=== PATIENT | female | born 1945 | race Caucasian/White ===

== ENCOUNTER 2020-07-16 17:01 | Outpatient (CLI) | payer MEDICARE, SELFPAY ==
--- NOTE | ~2020-07-16 | XR_ITS ---
EXAMINATION: XR knee RT 3V DATE: 07/16/2020 18:19 INDICATION: Right knee pain and swelling. TECHNIQUE: 4 views of right knee were obtained. COMPARISON: Right knee radiographs 11/26/2008 FINDINGS: Bone alignment is normal. No fracture. There is mild tricompartmental osteoarthritis. There is chondrocalcinosis of the menisci. No knee joint effusion. IMPRESSION: 1. Mild right knee osteoarthritis. Reviewed, dictated and finalized at location A.
== END 2020-07-16 17:02 | disposition home or self-care (01) ==
LOC: CHSIMG 17:06
PROVIDERS: PCP Internal Medicine; Visit Provider Internal Medicine
DX: M25.461 Effusion, right knee (principal); M17.11 Unilateral primary osteoarthritis, right knee
CPT/HCPCS: 73562

== ENCOUNTER 2021-04-02 03:59 | Emergency (ER) | payer MEDICARE, SELFPAY ==
[2021-04-02 04:05] VITALS: BP 183/91; PULSE 92; RESP 16; TEMP 36.6; O2SAT 96
[2021-04-02] MEDS: KETOROLAC 30 MG/ML VIAL (*BKC) IM (04:18)
--- NOTE | 2021-04-02 04:52 | ED.BACK ---
HPI - Back Pain/Injury General Chief Complaint: Back Pain/Injury Stated Complaint: Back pain Source: patient and RN notes reviewed Mode of arrival: ambulatory Limitations: no limitations History of Present Illness HPI Narrative: patient was picking up her grandson when she felt twinge in her left lower back. She says it continues to hurt and spasm. Making it difficult for her to sleep. MD elicited complaint: back pain Onset (ago): day(s) (2) Timing: constant Severity: severe Similar Symptoms Previously: No Quality: dull, aching and spasming Location: lumbar spine Radiation: none Exacerbating factors: movement Relieving factors: none Context: while lifting Associated symptoms: denies other symptoms Related Data Home Medications Medication Instructions Recorded Confirmed Adult Low Dose Aspirin 81 mg PO DAILY 04/02/21 04/02/21 pravastatin 10 mg PO DAILY 04/02/21 04/02/21 triamterene-hydrochlorothiazid 37.5 tablet PO DAILY 04/02/21 04/02/21 verapamil 180 mg PO DIRECTED 04/02/21 04/02/21 Allergies Allergy/AdvReac Type Severity Reaction Status Date / Time No Known Allergies Allergy Verified 04/02/21 04:12 Review of Systems Review of Systems: All systems reviewed & are unremarkable except as noted in HPI and below PMFSH Past Medical History Medical History (Updated 04/02/21 @ 05:04 by Tommie Smith MD) Breast cancer Hyperlipidemia Hypertension Surgical History Surgical History (Updated 04/02/21 @ 05:03 by Tommie Smith MD) S/P breast lumpectomy Exam Const: General: healthy appearing, no acute distress and alert Nutritional Appearance: well nourished Orientation/consciousness: patient oriented x3 HENMT: Head: normal to inspection Ears: external ears normal Face and sinus: normal facial exam Mouth: Yes moist mucous membranes Eyes: Conjunctivae: conjunctivae normal Pupils: Equal, round and reactive pupils present EOM: EOMs intact bilaterally Neck: Neck: normal visual inspection Resp: Effort & Inspection: normal respiratory effort Auscultation: clear to auscultation bilaterally Cardio: Rate: regular rate Rhythm: regular rhythm GI: GI Palp: Yes Soft to palpation and No Tenderness to palpation present (GI) Auscultation: normal bowel sounds Back/Spine/Pelvis: Cervical Spine: cervical ROM normal Thoracic/Lumbar Spine: straight leg raise negative bilaterally, pain with thoraco-lumbar ROM, thoraco-lumbar ROM limited ( Backward extension) with lateral flexion to the right and with lateral flexion to the left, thoraco-lumbar spasm on the left in the lower lumbar and No lumbar spinal tenderness Skin: General skin exam: normal color Rashes: no rashes Neuro: General: patient oriented x3, moves all extremities, no focal motor deficits and CN's II-XI intact bilaterally Speech: normal speech Motor exam (neuro): 5/5 motor strength present throughout Deep tendon reflexes (DTR's): Right patellar reflex intensity grade: 2+, Left patellar reflex intensity grade: 2+, Right ankle reflex intensity grade: 2+ and Left ankle reflex intensity grade: 2+ Extrem: General: normal to inspection and no clubbing, cyanosis or edema Psych: Appearance: grossly normal and well kempt Mental Status: mental status grossly normal Affect: normal affect Attitude: cooperative Thought content: Yes Normal thought content present Course Course Emergency Course: patient had improvement in her pain and range of motion following Toradol. Vital Signs Vital signs: Vital Signs Temperature 36.6 C 04/02/21 04:05 Pulse Rate 92 04/02/21 04:05 Respiratory Rate 16 04/02/21 04:05 Blood Pressure 183/91 H 04/02/21 04:05 Pulse Oximetry 96 04/02/21 04:05 Temperature 36.6 C 04/02/21 04:05 Pulse Rate 92 04/02/21 04:05 Respiratory Rate 16 04/02/21 04:05 Blood Pressure 183/91 H 04/02/21 04:05 Pulse Oximetry 96 04/02/21 04:05 Discharge Plan Discharge Clinical Impression: Strain of lumbar reg
[2021-04-02 04:53] VITALS: BP 157/81; PULSE 79; RESP 16; O2SAT 94
== END 2021-04-02 05:15 | disposition home or self-care (01) ==
PROVIDERS: Emergency Provider Emergency Medicine; PCP Internal Medicine
DX: S39.012A Strain of muscle, fascia and tendon of lower back, initial encounter (principal); X50.9XXA Other and unspecified overexertion or strenuous movements or postures, initial encounter; E78.5 Hyperlipidemia, unspecified; I10 Essential (primary) hypertension; Z85.3 Personal history of malignant neoplasm of breast
CPT/HCPCS: 96372; 99283; J1885

== ENCOUNTER 2022-04-06 15:43 | Outpatient (CLI) | payer MEDICARE, SELFPAY ==
--- NOTE | ~2022-04-06 | XR_ITS ---
EXAM: XR lumbar spine 2-3V DATE: 04/06/2022 16:12 HISTORY: RT SIDED LUMBAR PAIN RADIATES DOWN LEG X FEW WEEKS NO INJURY . COMPARISON: 08/06/2015. FINDINGS: 5 nonrib-bearing lumbar-type vertebral bodies. Pedicles intact. Normal vertebral body alig nment. Mild lumbar scoliosis. Vertebral body heights preserved. Multilevel moderate and severe degree s of disc space narrowing and marginal osteophytosis with vacuum phenomenon at L1-2, L3-4, and L5-S1. Multilevel facet hypertrophy and sclerosis. Minimal aortic calcification without evident aneurysm No fracture or dislocation. IMPRESSION: Multilevel moderate-severe degenerative disc disease and facet arthropathy. Reviewed, dictated and finalized at location K. ER TAILER IMPRESSION: Multilevel moderate-severe degenerative disc disease and facet arth ropathy.
--- NOTE | ~2022-04-06 | XR_ITS ---
EXAM: XR hip RT min 2V DATE: 04/06/2022 16:13 HISTORY: LATERAL/POSTERIOR RT HIP PAIN X FEW WEEKS NO INJURY . COMPARISON: None available. FINDINGS: Decreased mineralization. No fracture or dislocation. No lytic or blastic lesion. Bilatera l superior hip joint space narrowing and chondrocalcinosis. Pelvic and hip enthesopathy. No erosion o r periosteal change. Pelvic phleboliths. Degenerative change in the lumbar spine. IMPRESSION: Mild arthritic changes of the hips. Reviewed, dictated and finalized at location K. 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
== END 2022-04-06 15:44 | disposition home or self-care (01) ==
LOC: CHSIMG 15:46
PROVIDERS: PCP Internal Medicine; Visit Provider Internal Medicine
DX: M25.551 Pain in right hip (principal); M51.36 Other intervertebral disc degeneration, lumbar region; M16.0 Bilateral primary osteoarthritis of hip
CPT/HCPCS: 72100; 73502

== ENCOUNTER 2022-07-20 10:41 | Outpatient (CLI) | payer MEDICARE, OTHER, SELFPAY ==
--- NOTE | ~2022-07-20 | DEXA_ITS ---
Bone Density Report Name: KRISS NOLAN Age: 77 Sex: Female Ethnicity: White Date of : 1945 Indication: postmenopausal; screening for osteoporosis; height loss; Referring Provider: Vance Grey Study: Bone densitometry was performed. Exam Date: July 20, 2022 Accession number: [id number] Bone Density: Region BMD T-score Z-score Classification AP Spine(L2, L3, L4) 1.157 0.7 3.3 Normal Femoral Neck (Left) 0.760 -0.8 1.4 Normal Total Hip (Left) 0.958 0.1 2.0 Normal Femoral Neck (Right) 0.739 -1.0 1.2 Normal Total Hip (Right) 0.945 0.0 1.9 Normal Femoral Neck Mean 0.750 -0.9 1.3 Normal Total Hip Mean 0.952 0.1 2.0 Normal World Health Organization criteria for BMD impression classify patients as: Normal (T-score at or above -1.0), Osteopenia (T-score between -1.0 and -2.5), or Osteoporosis (T-score at or below -2.5). 10-year Fracture Risk: FRAX not reported because: All T-scores for Spine Total, Hip Total, Femoral Neck at or above -1.0 Clinical Information Provided by Patient: Has used the following medications: Vitamin D, Calcium Patient maximum height was 63 Menopause Age: 50 No regular weight bearing exercise Onset of menses at age 13 Number of children 1 Impression: The patient has normal bone mass. Discussion: BONE DENSITY IS ABOVE THE MINIMUM DESIRABLE LEVEL AT ALL SKELETAL SITES TESTED. This patient?s bone mineral density is above the minimum desirable level (T-score -1.0 or better) at all sites measured. The patient should follow a healthful lifestyle (good nutrition with adequate calcium and vitamin D, and appropriate weight-bearing exercise). Follow-Up: Consider repeating this study in 5 years or sooner if there is some new clinical indication. Reported by: Dr. Rogelio De Leon on 07/20/2022 11:06:00 AM. Reviewed, dictated and finalized at location ATim GEORGE
== END 2022-07-20 10:42 | disposition home or self-care (01) ==
LOC: CHSIMG 10:45
PROVIDERS: PCP Internal Medicine; Visit Provider Internal Medicine
DX: Z78.0 Asymptomatic menopausal state (principal)
CPT/HCPCS: 77080

== ENCOUNTER 2024-11-22 14:16 | Outpatient (CLI) | payer MEDICARE, OTHER, SELFPAY ==
--- NOTE | ~2024-11-22 | DEXA_ITS ---
Bone Density Report Name: KRISS NOLAN Age: 79 Sex: Female Ethnicity: White Date of : 1945 Indication: postmenopausal; screening for osteoporosis; height loss; Referring Provider: Vance Grey Study: Bone densitometry was performed. Exam Date: November 22, 2024 Accession number: [id number] Bone Density: Region BMD T-score Z-score Classification AP Spine(L2, L3, L4) 1.162 0.8 3.5 Normal Femoral Neck (Left) 0.785 -0.6 1.7 Normal Total Hip (Left) 1.058 1.0 3.0 Normal Femoral Neck (Right) 0.772 -0.7 1.6 Normal Total Hip (Right) 1.055 0.9 3.0 Normal Femoral Neck Mean 0.779 -0.6 1.7 Normal Total Hip Mean 1.057 0.9 3.0 Normal World Health Organization criteria for BMD impression classify patients as: Normal (T-score at or above -1.0), Osteopenia (T-score between -1.0 and -2.5), or Osteoporosis (T-score at or below -2.5). 10-year Fracture Risk: FRAX not reported because: All T-scores for Spine Total, Hip Total, Femoral Neck at or above -1.0 Previous Exams: Region Exam Age BMD T-score BMD Change BMD Change Date g/cm2 vs Baseline vs Previous AP Spine (L2-L4) 11/22/2024 79 1.162 0.8 0.005 (0.4%) 0.005 (0.4%) 07/20/2022 77 1.157 0.7 Total Hip(Left) 11/22/2024 79 1.058 1.0 0.100 (10.4%)* 0.100 (10.4%)* 07/20/2022 77 0.958 0.1 Total Hip(Right) 11/22/2024 79 1.055 0.9 0.110 (11.7%)* 0.110 (11.7%)* 07/20/2022 77 0.945 0.0 *Denotes significance at 95% confidence level, LSC for AP Spine = 0.022 g/cm2, LSC for Total Hip = 0.027 g/cm2 Clinical Information Provided by Patient: Has used the following medications: Vitamin D Patient maximum height was 63 Menopause Age: 50 No regular weight bearing exercise Drinks caffeinated beverages Onset of menses at age 12 Number of children 1 Impression: The patient has normal bone mass. No significant bone loss was observed. Discussion: BONE DENSITY IS ABOVE THE MINIMUM DESIRABLE LEVEL AT ALL SKELETAL SITES TESTED. This patient?s bone mineral density is above the minimum desirable level (T-score -1.0 or better) at all sites measured. The patient should follow a healthful lifestyle (good nutrition with adequate calcium and vitamin D, and appropriate weight-bearing exercise). Follow-Up: Consider repeating this study in 5 years or sooner if there is some new clinical indication. Reported by: STANLEY on 11/22/2024 3:07:00 PM. Reviewed, dictated and finalized at location A.
== END 2024-11-22 14:17 | disposition home or self-care (01) ==
PROVIDERS: PCP Internal Medicine; Visit Provider Internal Medicine
DX: Z78.0 Asymptomatic menopausal state (principal)
CPT/HCPCS: 77080

== ENCOUNTER 2024-11-30 16:26 | Outpatient (CLI) | payer MEDICARE, OTHER, SELFPAY ==
--- OUTSIDE RECORDS SUMMARY | 2024-11-30 16:31 | XMS_ITS | Clinical Summary ---
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 Name Role Phone Vance Grey MD Primary Care Provider [phone] Allergies No known active allergies Medications triamterene-hydroC HLOROthiazide (MAXZIDE-25) 37.5-25 MG tablet 03/14/2017 A ctive verapamil ER (VERELAN PM) 180 MG 24 hr capsule 03/14/2017 Ac tive pravastatin (PRAVACHOL) 10 MG tablet 03/14/2017 Active Active Problems Problem Noted Date Diagnosed Date Screening for colon cancer 06/25/2022 Overview (06/25/2022): Added automatically from request for surgery [id number] Hx of colonic polyp 06/25/2022 Overview (06/25/2022): Added automatically from request for surgery [id number] Family History Medical History Relation Comments Breast Cancer Neg Hx Social History Tobacco Use Types Packs/Day Years Used Date Smoking Tobacco: Never Smokeless Tobacco: Never Alcohol Use Standard Drinks/Week Comments Never 0 (1 standard drink = 0.6 oz pur e alcohol) Comments No Sex and Gender Information Value Date Recorded Sex Assigned at Female 03/27/2024 8:47 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 Legal Sex Female 4:44 PM CDT Gender Identity Not on file Sexual Orientation Not on file Last Filed Vital Signs Vital Sign Reading Time Taken Comments Blood Pressure 141/66 10/08/2022 2:00 PM CDT Pulse 69 10/08/2022 2:00 PM CDT Temperature 36.9 C (98.4 F) 10/08/2022 12:02 PM CDT Respiratory Rate 20 10/08/2022 2:00 PM CDT Oxygen Saturation 98% 10/08/2022 2:00 PM CDT Inhaled Oxygen Concentration - - Weight 68 kg (150 lb) 10/01/2022 10:04 AM CDT Height 160 cm (5' 3) 10/01/2022 10:04 AM CDT Body Mass Index 26.57 10/01/2022 10:04 AM CDT Plan of Treatment Health Maintenance Due Date Last Done Comments Hepatitis C 1963 DTaP, Tdap and Td Vaccines ( 1 - Tdap) 1964 Annual Medicare Wellness Visit 2010 Dexa Scan (General) 2010 Zoster Vaccines (2 of 3) 11/16/2011 09/21/2011 Pneumococcal Vaccine: 50+ Ye ars (2 of 2 - PPSV23) 01/04/2016 01/03/2015 RSV Immunization or 60+ Years (1 - 1-dose 75+ series) 2020 COVID-19 Vaccine ( - 2023-2 5 season) 2024 Colorectal Cancer Screening Colonoscopy (10 Years) Discontinued 10/08/2022 Meningococcal B Vaccine Aged Out No l onger eligible based on patient's age to complete this topic Meningococcal Vaccine Aged Out No mode charbel eligible based on patient's age to complete this topic RSV Immunizations Under 20 Months Aged Out No longer eligible based on patient's age to complete this topic Insurance MEDICARE [facility] Care Teams Sheep And Wheat Farmer Relationship Specialty Start Date End Date Vance Grey MD [address] [place] [address] PCP - General INTERNAL MEDICINE 11/21/18
== END 2024-11-30 16:27 | disposition home or self-care (01) ==
PROVIDERS: PCP Internal Medicine; Visit Provider Internal Medicine
DX: R21 Rash and other nonspecific skin eruption (principal)
CPT/HCPCS: 87529; 87798

== ENCOUNTER 2025-03-08 12:26 | Emergency (ER) | payer MEDICARE, OTHER, SELFPAY ==
--- NOTE | ~2025-03-08 | XR_ITS ---
Examination: XR chest 2V Clinical History: chest pain x5 days Comparison: None Technique: PA and Lateral Findings: Cardiomediastinal silhouette normal size and configuration. Mild interstitial markings right midlung. No acute bony abnormality. Osteopenia. IMPRESSION: 1. Minimal pneumonitis right lung not excluded. Reviewed, dictated and finalized at location R. ERY NURSE
[2025-03-08 12:26] VITALS: BP 147/76; PULSE 79; RESP 16; TEMP 36.3; O2SAT 94
--- NOTE | 2025-03-08 12:27 | ECG_ITS ---
Test Date: 2025-03-08 12:35:48 Measurements Intervals Mobile Rate: 75 P: 15 KS: 191 QRS: -36 QRSD: 75 T: 65 QT: 373 QTc: 417 Interpretive Statements SINUS RHYTHM LEFT AXIS DEVIATION CONSIDER ANTERIOR INFARCT, AGE INDETERMINATE BORDERLINE ST-T WAVE ABNORMALITY- ANT/HIGH LAT LEADS BASELINE ARTIFACT- I, III, AVR, AVL, AVF ABNORMAL ECG No previous ECG available for comparison Electronically Signed On 03-08-2025 20:08:01 REMEDIATION TECHNICIAN by Kemar Blakely D.O.
--- NOTE | 2025-03-08 12:38 | ED_ITS ---
HPI - Chest Pain General Chief Complaint: Chest Pain Stated Complaint: chest pressure Source: patient and family Mode of arrival: ambulatory Limitations: no limitations History of Present Illness HPI narrative: Patient is a 79-year-old female with left-sided chest pain for the past 2 days. Patient did have some shingles in the similar area about 3-4 weeks ago. The left sided chest pain was a little bit more epigastric in nature or lower chest area. MD complaint: chest discomfort Pertinent past history: other (Shingles 3-4 weeks ago left chest) Onset (ago): day(s) (2) Timing of current episode: episodic and now resolved Prior episodes: Yes Onset: during rest Pain location: substernal and left chest (Lower chest) Pain radiation: none Severity: mild Pain scale (0-10): 2 Quality: tightness and sharp Relieving factors: nothing Exacerbating factors: nothing Context: other (Patient has left-sided chest pain that has been going on and off since last night and resolved at this time) Associated symptoms: other (None) Treatment prior to arrival: none Risk Factors Coronary artery disease risk factors: hyperlipidemia and hypertension Thoracic aortic dissection risk factors: none Related Data On Oral Contraceptives: No Home Medications ?Medication ?Instructions ?Recorded ?Confirmed ?Last Taken ?Type Adult Low Dose Aspirin 81 mg PO DAILY 04/02/2101/12 Unknown History pravastatin 10 mg tablet 10 mg PO DAILY 04/02/2101/12 Unknown History triamterene 37.5 37.5 tablet PO DAILY 2 01/29/25 Unknown History mg-hydrochlorothiazide 25 mg tablet verapamil 180 mg tablet,extended 180 mg PO DIRECTED 04/02/21 01/29/25 Unknown History release Allergies Allergy/AdvReac Type Severity Reaction Status Date / Time No Known Allergies Allergy Verified 03/08/25 13:04 Review of Systems 2 Review of Systems: All systems reviewed & are unremarkable except as noted in HPI and below Constitutional: Constitutional: Reports no additional constitutional complaints Eyes: Eyes: Reports no additional eye complaints ENT: Reports system reviewed and no additional complaints, except as documented Cardiovascular: Cardiovascular: Reports no additional cardiovascular complaints Respiratory: Respiratory: Reports no additional respiratory complaints Gastrointestinal: Gastrointestinal: Reports no additional gastrointestinal complaints Genitourinary: Genitourinary: Reports no additional female genitourinary complaints Musculoskeletal: Musculoskeletal: Reports no additional musculoskeletal complaints Integumentary/Breasts: Skin/Breast: Reports system reviewed and no additional complaints, except as docu Neurologic: Reports system reviewed and no additional complaints, except as documented Psychiatric: Psychiatric: Reports no additional psychiatric complaints Endocrine: Endocrine: Reports no additional endocrine complaints Hematologic/Lymphatic: Hematologic/Lymphatic: Reports no additional hematologic/lymphatic complaints Allergic/Immunologic: Allergic/Immunologic: Reports no additional allergic/immunologic complaints PMFSH Past Medical History Medical History Screening mammogram, encounter for Breast cancer hx of breast ca; 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; ER/LA positive Hyperlipidemia Hypertension Surgical History Surgical History Delivery by section (~1981) History of orthopedic surgery (02/12/04) foot surgery - nerve tumor H/O right breast biopsy (07/31/03) (R) breast needle loclization bx, (R) breast needle loclization bx , separate lesion S/P breast lumpectomy (08/20/03) (R) breast lumpectomy with axillary dissection Family History Family History Father Heart disease Mother Hypertension Social History Social History Smoking status: Never smoker Second hand tobacco smoke exposure: No Alcohol intake: never Substance use: never Substance use type: does not use Current Housing: Decline to Answer Concerned About Future Housing: Decline to Answer Difficulty Paying Gas/Electric Bills: Decline to Answer Difficulty Paying for Meds: Decline to Answer Currently Unemployed: Decline to Answer Education: Decline to Answer Difficulty w/ Childcare or Family Care: Decline to Answer Living arrangements: with family Additional living arrangements comments: Occupation/Education: retired Gender identity (if verbalized by the patient): Female Sexual Orientation (if Verbalized by the Patient): Straight or Heterosexual Exam 2 Const: General: healthy appearing Nutritional Appearance: well nourished Orientation/consciousness: patient oriented x3 Limitations: no limitations HENMT: Head: normal to inspection Ears: external ears normal F sky/Nose/Sinus: Normal external nose present Eyes: Conjunctivae: conjunctivae normal Pupils: Equal, round and reactive pupils present EOM: EOMs intact bilaterally Neck: Neck: normal visual inspection Chest: Chest palpation & inspection: normal inspection of the chest Resp: Effort & Inspection: normal respiratory effort and not labored A uscultation: clear to auscultation bilaterally and no crackles Cardio: Rate: regular rate Rhythm: regular rhythm Heart sounds: no murmurs GI: Inspection: non-distended GI Palp: Yes Soft to palpation and No Tenderness to palpation present (GI) Auscultation: normal bowel sounds : General: Yes bladder normal to palpation Back/Spine/Pelvis: Back: no CVA tenderness Skin: General skin exam: normal color Rashes: rash noted (Left chest has a redness and erythema on the mid to upper chest) Wounds: no wounds Other: The rash is the prior site of shingles; no findings of vesicles or blisters present Neuro: General: patient oriented x3, moves all extremities and no meningeal signs Extrem: General: normal to inspection Psych: Mental Status: mental status grossly normal Affect: normal affect Attitude: cooperative Course Vital Signs Vital signs: Vital Signs Temperature 36.3 C L 03/08/25 12:26 Pulse Rate 79 03/08/25 12:26 Respiratory Rate 16 03/08/25 12:26 Blood Pressure 147/76 H 03/08/25 12:26 Pulse Oximetry 94 03/08/25 12:26 Oxygen Delivery Room Air 03/08/25 12:26 Temperature 36.6 C 03/08/25 15:00 Pulse Rate 72 03/08/25 15:00 Respiratory Rate 16 03/08/25 15:00 Blood Pressure 142/75 H 03/08/25 15:00 Pulse Oximetry 96 03/08/25 15:00 Oxygen Delivery Room Air 03/08/25 13:30 [facility] Narrative Medical decision making narrative: Patient is a 79-year-old female with left-sided chest pain for the past 2 days. Chest pain is atypical in nature. Labs. Chest x-ray. UA. Workup was essentially negative except UTI. We will treat UTI and shingles possibility. Chest x-ray shows pneumonitis and will treat accordingly as well. Differential Diagnosis Differential Diagnosis: Atypical chest pain, chest pain/angina Lab Data [facility] Lab Attestation statement: I personally reviewed the patient's lab results. 03/08/25 13:07 03/08/25 13:07 Labs: Lab Results 03/08/25 03/08/25 Range/Units 13:07 14:17 WBC 8.4 (4.8-10.8) K/mm3 RBC 5.14 (4.20-5.40) M/mm3 Hgb 14.8 H (11.7-13.8) g/dL Hct 45.1 H (35.0-42.0) % MCV 87.7 (78.0-102.0) fL MCH 28.8 (27.0-31.0) pg MCHC 32.8 (32-36) g/dL RDW 13.2 (11.6-14.4) % Plt Count 272 (150-420) K/mm3 MPV 10.6 (9.2-11.8) fl Immature Gran % (Auto) 0.4 H (0.0-0.0) % Neut % (Auto) 57.0 (50.0-70.0) % Lymph % (Auto) 25.5 (18.0-42.0) % [place] % (Auto) 11.4 H (2.0-11.0) % Eos % (Auto) 5.1 (1.0-6.0) % Baso % (Auto) 0.6 (0.0-1.0) % Lymph # (Auto) 2.15 (1.10-4.50) K/mm3 [place] # (Auto) 0.96 H (0.10-0.90) K/mm3 Eos # (Auto) 0.43 (0.02-0.50) K/mm3 Baso # (Auto) 0.05 (0.00-0.10) K/mm3 Abs Immat Gran (auto) 0.03 H (0.00-0.00) K/mm3 Absolute Neuts (auto) 4.80 (1.70-7.20) K/mm3 Absolute Nucleated RBC 0.00 (0.00-0.00) K/mm3 Nucleated RBC % 0.0 (0-0.0) % PT 10.3 (9.50-12.1) Seconds INR 0.9 APTT 26.3 (23.9-30.70) Sec Sodium 142 (137-145) mmol/L Potassium 3.7 (3.4-5.0) mmol/L Chloride 103 (98-107) mmol/L Carbon Dioxide 28 (22-30) mmol/L Anion Gap 11 (4-12) mmol/L BUN 30 H (7-17) mg/dL Creatinine 1.17 H (0.7-1.0) mg/dL Estim Creat Clear Calc 32 ml/min Estimated GFR 45 L (59 - ) Glucose 101 (65-110) mg/dL Calculated Osmolality 300 H (285-295) mOsm/kg Calcium 10.1 (8.4-10.2) mg/dL Total Bilirubin 0.6 (0.2-1.3) mg/dL AST 40 H (14-36) U/L ALT 38 H (6-35) U/L Alkaline Phosphatase 86 (38-126) U/L Troponin I < 0.012 (0.000-0.034) ng/mL NT-Pro-B Natriuret Pep 68 (19.9-100) pg/mL Total Protein 7.6 (6.3-8.2) g/dL Albumin 4.5 (3.5-5.1) g/dL Lipase 144 (23-300) U/L Urine Color Light yellow (Yellow) Urine Appearance Cloudy A (Clear) Urine pH 8.0 (5.0-8.0) Ur Specific [place] 1.015 (1.010-1.020) Urine Protein Negative (Negative) Urine Glucose (UA) Negative (Negative) Urine Ketones Negative (Negative) Ur Blood (Man) Negative (Negative) Urine Nitrate Positive H (Negative) Urine Bilirubin Negative (Negative) Urine Urobilinogen 0.2 (0.2-1.0) mg/dL Leukocyte Esterase Rfl 3+ H (Negative) LYNDON/UL Urine RBC None seen (0-2) /hpf Urine WBC 10-15 H (0-3) /hpf Ur Squamous Epith Cells Rare (Few) /hpf Amorphous Sediment Moderate H (None) Urine Bacteria 2+ H (None) /hpf Imaging Data Attestation: I personally reviewed and interpreted this imaging study as follows: Radiologist's impression: ITS Impressions Chest X-Ray 03/08/25 13:08 IMPRESSION: 1. Minimal pneumonitis right lung not excluded. ECG Data EKG #1: Attestation: I personally reviewed and interpreted this ECG as follows: ECG completion date: 03/09/25 ECG completion time: 03:13 normal rate, sinus rhythm, no ectopy, non-specific ST changes, normal QRS, normal QT and left axis Discharge Plan Discharge Clinical Impression: Atypical chest pain, Acute UTI, Pneumonitis Shingles Qualifiers: Herpes zoster complications: unspecified herpes zoster complication Qualified Code(s): B02.8 - Zoster with other complications Patient Disposition: Home Condition: Stable Instructions: Antibiotic Form, Chest Pain (DC), Urinary Tract Infection in Older Adults (ED) Patient Language: Romanian Prescriptions: New amoxicillin-pot clavulanate 875-125 mg tablet 1 tablet PO BID 7 Days Qty: 14 0RF prednisone 20 mg tablet 40 mg PO DAILY 3 Days Qty: 6 0RF valacyclovir [Valtrex] 1 gram tablet 1,000 mg PO TID 10 Days Qty: 30 0RF No Action verapamil 180 mg tablet extended release 180 mg PO DIRECTED pravastatin 10 mg tablet 10 mg PO DAILY triamterene-hydrochlorothiazid 37.5-25 mg tablet 37.5 tablet PO DAILY Adult Low Dose Aspirin 81 mg PO DAILY clobetasol 0.05 % ointment 1 applic topical BID Qty: 30 1RF Follow-up/Referrals: Vance Grey MD [Primary Care Provider, Internal Medicine] Time of Disposition: 14:46
[2025-03-08 13:00] VITALS: BP 138/74; PULSE 75; RESP 17; O2SAT 93
[2025-03-08 13:10] LABS: Hematocrit 45.1 % (35.0-42.0); Hemoglobin 14.8 g/dL (11.7-13.8); Immature Granulocyte Percent A 0.4 % (0.0-0.0); Lymphocytes Absolute Auto 2.15 K/mm3 (1.10-4.50); Mean Corpuscular HGB Conc 32.8 g/dL (32-36); Mean Corpuscular Hemoglobin 28.8 pg (27.0-31.0); Mean Corpuscular Volume 87.7 fL (78.0-102.0); Nucleated Red Blood Cells Absolute Auto 0.00 K/mm3 (0.00-0.00); Nucleated Red Blood Cells Perc 0.0 % (0-0.0); Platelet Count Result 272 K/mm3 (150-420); Red Blood Count 5.14 M/mm3 (4.20-5.40); White Blood Count 8.4 K/mm3 (4.8-10.8)
[2025-03-08 13:23] LABS: Alanine Aminotransferase 38 U/L (6-35); Albumin Level 4.5 g/dL (3.5-5.1); Alkaline Phosphatase 86 U/L (38-126); Anion Gap 11 mmol/L (4-12); Aspartate Amino Transferase 40 U/L (14-36); Bilirubin,Total 0.6 mg/dL (0.2-1.3); Blood Urea Nitrogen 30 mg/dL (7-17); Calcium 10.1 mg/dL (8.4-10.2); Carbon Dioxide 28 mmol/L (22-30); Chloride 103 mmol/L (98-107); Estimated CRCL calculation 32 ml/min; Estimated Glomerular Filt Rate 45; Glucose 101 mg/dL (65-110); Lipase 144 U/L (23-300); Osmolality Calculated 300 mOsm/kg (285-295); Potassium 3.7 mmol/L (3.4-5.0); Sodium 142 mmol/L (137-145); Total Protein 7.6 g/dL (6.3-8.2)
[2025-03-08 13:26] LABS: INR 0.9; Partial Thromboplastin Time 26.3 Sec (23.9-30.70); Prothrombin Time 10.3 Seconds (9.50-12.1)
--- OUTSIDE RECORDS SUMMARY | 2025-03-08 13:27 | XMS_ITS | Clinical Summary ---
Author Organization [facility] Address [address] [place] [address] Care Team Providers Care Program Strategist Name Role Phone Vance Grey MD Primary Care Provider [phone] Allergies No known active allergies Medications triamterene-hydroC HLOROthiazide (MAXZIDE-25) 37.5-25 MG tablet 03/14/2017 A ctive verapamil ER (VERELAN PM) 180 MG 24 hr capsule 03/14/2017 Ac tive pravastatin (PRAVACHOL) 10 MG tablet 03/14/2017 Active Active Problems Problem Noted Date Diagnosed Date Screening for colon cancer 06/25/2022 Overview (06/25/2022): Added automatically from request for surgery [id number] Hx of colonic polyp 06/25/2022 Overview (06/25/2022): Added automatically from request for surgery [id number] Family History Medical History Relation Comments Breast Cancer Neg Hx Social History Tobacco Use Types Packs/Day Years Used Date Smoking Tobacco: Never Smokeless Tobacco: Never Alcohol Use Standard Drinks/Week Comments Never 0 (1 standard drink = 0.6 oz pur e alcohol) Comments No Sex and Gender Information Value Date Recorded Sex Assigned at Female 03/27/2024 8:47 AM BLOCK PAVER Legal Sex Female 4:44 PM CDT Gender [...] 10/01/2022 10:04 AM CDT Plan of Treatment Upcoming Encounters Date Type Department Care Team (Late st Contact Info) Description 03/28/2025 9:00 AM BLOCK PAVER Appointment [facility] [place] [facility] [address] [place] [address] Referral, Self Health Maintenance Due Date Last Done Comments Hepatitis C 1963 DTaP, Tdap and Td Vaccines (1 - Tdap) 1964 Annual Medicare Wellness Visit 2010 Dexa Scan (General) 2010 Zoster Vaccines (2 of 3) 11/16/2011 09/21/2011 Pneumococcal Vaccine: 50+ Years (2 of 2 - PCV20 or PCV21) 01/04/2016 01/03/2015 RSV Immunization or 60+ Years (1 - 1-dose 75+ series) 2020 COVID-19 Vaccine ( - season) 2024 Influenza Adult (#1) 2024 12/19/2017, 12/14/2016, 12/02/2016, Additional history exists Colorectal Cancer Screening Colonoscopy (10 Years) Discontinued 10/08/2022 Hepatitis A Vaccines Aged Out No long er eligible based on patient's age to complete this topic Meningococcal B Vaccine Aged Out No l onger eligible based on patient's age to complete this topic Meningococcal Vaccine Aged Out No mode charbel eligible based on patient's age to complete this topic RSV Immunizations Under 20 Months Aged Out No longer eligible based on patient's age to complete this topic Insurance MEDICARE [facility] Care Teams Program Strategist Relationship Specialty Start Date End Date Vance Grey MD [address] [place] [address] PCP - General INTERNAL MEDICINE 11/21/18
[2025-03-08 13:30] VITALS: BP 157/68; PULSE 73; RESP 17; O2SAT 95
[2025-03-08 13:32] LABS: NT Pro B Type Natriuretic Pept 68 pg/mL (19.9-100)
[2025-03-08 13:36] LABS: Troponin I < 0.012 ng/mL (0.000-0.034)
[2025-03-08 14:00] VITALS: BP 139/72; PULSE 71; RESP 16; O2SAT 96
[2025-03-08 14:23] LABS: Add Urine Microscopic? YES; Glucose Urine UA Negative (Negative); Leukocyte Esterase Ur 3+ LEU/UL (Negative); Nitrate Urine Positive (Negative); Specific Grav Ur 1.015 (1.010-1.020)
[2025-03-08 14:28] LABS: Appearance Urine Cloudy (Clear)
[2025-03-08 14:30] VITALS: BP 150/68; PULSE 72; RESP 19; O2SAT 96
[2025-03-08 15:00] VITALS: BP 142/75; PULSE 72; RESP 16; TEMP 36.6; O2SAT 96
--- NOTE | 2025-03-10 12:39 | PC.NURSE ---
preliminary urine culture reviewed. 50-100,000 gram negative bacilli isolated
--- NOTE | 2025-03-11 13:23 | PC.NURSE ---
urine culture reviewed, started on augmentin , no change needed.
== END 2025-03-08 15:00 | disposition home or self-care (01) ==
PROVIDERS: Emergency Provider Emergency Medicine; PCP Internal Medicine
DX: R07.89 Other chest pain (principal); N39.0 Urinary tract infection, site not specified; J98.4 Other disorders of lung; B02.8 Zoster with other complications; I10 Essential (primary) hypertension; E78.5 Hyperlipidemia, unspecified
CPT/HCPCS: 36415; 71046; 80053; 81001; 83690; 83880; 84484; 85025; 85610; 85730; 87086; 87186; 93005; 99284; A9270